=== PATIENT | male | born 1980 | race Caucasian/White ===

== ENCOUNTER → 2021-06-12 | Outpatient (CLI) | payer BC ==
[2021-06-12 11:03] LABS: ALBUMIN 4.2 GM/DL (3.2-5.2); ALT/SGPT 74 U/L (12-78); BILIRUBIN,TOTAL 0.6 MG/DL (0.2-1.0); BLOOD UREA NITROGEN 15 MG/DL (7-18); CALCIUM LEVEL 9.8 MG/DL (8.5-10.1); CARBON DIOXIDE LEVEL 32 MEQ/L (21-32); CHLORIDE LEVEL 108 MEQ/L (98-107); CHOLESTEROL LEVEL 266 MG/DL (<200); CHOLESTEROL RISK RATIO 4.925 (<5); CREATININE FOR GFR 1.07 MG/DL (0.70-1.30); GLOMERULAR FILTRATION RATE > 60.0 (>60); GLUCOSE, FASTING 99 MG/DL (70-100); HDL CHOLESTEROL 54 MG/DL (>40); LDL CHOLESTEROL 163 MG/DL (<100); NON-HDL-C 212 MG/DL; POTASSIUM SERUM 5.2 MEQ/L (3.5-5.1); SODIUM LEVEL 140 MEQ/L (136-145); TOTAL PROTEIN 7.5 GM/DL (6.4-8.2); TRIGLYCERIDES LEVEL 246 MG/DL (<150)
== END ==
LOC: M WUC 08:11
PROVIDERS: ATTEND Student in an Organized Health Care Education/Training Program
DX: I10 Essential (primary) hypertension (principal)

== ENCOUNTER → 2021-06-20 | Outpatient (CLI) | payer BC ==
--- NOTE | 2021-06-20 08:57 | REP ---
INDICATION: RADICULOPATHY COMPARISON: None. TECHNIQUE: Internal rotation, external rotation, axillary and Y view. FINDINGS: No acute fracture or dislocation. The acromioclavicular and glenohumeral joints are intact. No periarticular calcifications or degenerative changes are appreciated. Sub acromial space is normal. Surrounding soft tissues are unremarkable. IMPRESSION: Normal age-appropriate right shoulder radiographs. <Electronically signed by Geremias Johnston > 06/20/21 [id number]
--- NOTE | 2021-06-20 08:58 | REP ---
INDICATION: RADICULOPATHY COMPARISON: None. TECHNIQUE: AP, lateral, flexion/extension, bilateral oblique, and open-mouth views. FINDINGS: Alignment and lordosis is maintained. There is no evidence for acute fracture / compression injury or subluxation. No significant degenerative changes are appreciated. Oblique views demonstrate patent neural foramen. Open mouth view demonstrates normal C1-C2 articulation and odontoid process. IMPRESSION: Normal age-appropriate cervical spine series. <Electronically signed by Geremias Johnston > 06/20/21 [id number]
== END ==
LOC: M SOG 08:25
PROVIDERS: ATTEND Orthopaedic Surgery Sports Medicine
DX: M54.12 Radiculopathy, cervical region (principal)

== ENCOUNTER 2021-06-24 15:46 | Outpatient (RCR) | payer BC | END 2021-06-25 | LOC: M PT 15:46 | PROVIDERS: ATTEND Orthopaedic Surgery Sports Medicine | DX: M54.12 Radiculopathy, cervical region (principal) ==

== ENCOUNTER → 2021-06-29 | Outpatient (CLI) | payer BC ==
--- NOTE | 2021-06-30 10:07 | REPVR ---
PROCEDURE INFORMATION: Exam: MR Cervical Spine Without Contrast Exam date and time: 06/29/2021 2:17 PM Age: 40 years old Clinical indication: Radicular pain (radiculopathy); Location of radicular pain not specified; Additional info: Radiculopathy, impingement syndrome TECHNIQUE: Imaging protocol: Multiplanar magnetic resonance images of the cervical spine without contrast. COMPARISON: CR SPINE CERVICAL COMPLETE 06/20/2021 8:26 AM FINDINGS: Vertebrae: Straightening of lordosis may be positional or related to muscular spasm. Correlate clinically. Vertebral body heights are maintained. No acute fracture. No subluxation. Normal marrow signal. Disc heights are preserved. Craniocervical junction appears normal with normal position of cerebellar tonsils. Spinal cord: Normal signal. No intrinsic spinal cord lesion. Discs/Spinal canal/Neural foramina: There is minimal cervical disc bulging and marginal osteophyte formation. There is no spinal canal compromise or cord impingement. There is no significant neural foraminal narrowing. Vasculature: Expected flow voids in the vertebral arteries. Soft tissues: Unremarkable IMPRESSION: Minimal disc osteophyte complexes without significant foraminal compromise, spinal stenosis, or cord impingement. Electronically signed by: Elsie Adams On 06/30/2021 10:07:00 AM
--- NOTE | 2021-07-02 09:40 | REP ---
INDICATION: RADICULOPATHY, IMPINGEMENT SYNDROME. COMPARISON: Radiographs 06/20/2021. TECHNIQUE: Coronal oblique T1, T2 fat sat, sagittal oblique T2 fat sat, axial T2 fat sat, gradient echo. FINDINGS: Rotator cuff: There is mild supraspinatus tendinopathy/tendinitis with a partial bursal surface tear anteriorly. Acromioclavicular joint: There are mild hypertrophic degenerative changes of the acromioclavicular joint. Acromion: Type 2 Biceps Tendon: In bicipital groove, mild surrounding fluid may indicate mild tenosynovitis.. Hill Sach's deformity: None. Deltoid muscle: No abnormal signal. Biceps labral complex: I suspect a tear of the biceps labral complex. Labrum: There is a SLAP tear. This extends into the superior aspect of the posterior labrum. There is a small paralabral cyst at that location measuring 4 mm. Cartilage: There is mild chondromalacia at the glenohumeral joint. Bone marrow: No abnormal signal. Joint fluid: No effusion. IMPRESSION: Mild supraspinatus tendinopathy/tendinitis with a partial bursal surface tear anteriorly. Mild hypertrophic degenerative changes acromioclavicular joint, with a type 2 acromion. Mild fluid surrounding the biceps tendon in the bicipital groove may indicate mild tenosynovitis. There is a SLAP tear which appears to involve the biceps labral complex. There is also involvement of the superior aspect of the posterior labrum. There is a 4 mm paralabral cyst at that location. <Electronically signed by Drew Yeung > 07/02/21 0936
== END ==
LOC: M RAD 12:16
PROVIDERS: ATTEND Orthopaedic Surgery Sports Medicine
DX: M54.12 Radiculopathy, cervical region (principal); M75.41 Impingement syndrome of right shoulder; S43.431A Superior glenoid labrum lesion of right shoulder, initial encounter; X58.XXXA Exposure to other specified factors, initial encounter; Y92.9 Unspecified place or not applicable; Y99.9 Unspecified external cause status; Y93.9 Activity, unspecified

== ENCOUNTER 2021-07-10 16:45 | Outpatient (RCR) | payer BC | END 2021-07-25 | LOC: M PT 16:45 | PROVIDERS: ATTEND Orthopaedic Surgery Sports Medicine | DX: M54.12 Radiculopathy, cervical region (principal) ==

== ENCOUNTER 2021-09-29 11:44 | Emergency (ER) | payer BC ==
[~2021-09-29] VITALS: Ht 177.8 cm; Wt 115.8 kg
--- OUTSIDE RECORDS SUMMARY | 2021-09-29 11:52 | CCD | Continuity of Care Document ---
Author Author Fidencio GO MD Organization Unknown Address [address] [place] [address] , [facility] [address] [place] [address] Phone [phone] Care Team Providers Care Rn Research Name Role Phone Zee Gongora M.D. AUTM [phone] Problems Description No Information Available Social History Type Date Description Comments Sex Unknown ETOH Use Occasionally consumes alcohol Recreational Drug Use Denies Drug Use Tobacco Use Start: Unknown Denies Smoking Allergies, Adverse Reactions, Alerts Description No Known Drug Allergies Medications Description No Active Medications Immunizations Description No Information Available Vital Signs Date Vital Result Comment 06/20/2021 7:58am Body Temperature 96.8 F 06/04/2021 3:03pm Body Temperature 96.9 F Results Description No Information Available Procedures Date Code Description Status 07/09/2021 21978 Office/Outpatient Established Mo d MDM 30-39 Min Completed 06/20/2021 00319 Office/Outpatient Established Mo d MDM 30-39 Min Completed 06/20/2021 95729 Inject/Drain Arthrocentesis Ramila r Joint/Bursa/Ganglion Cyst Completed 06/04/2021 42470 Office/Outpatient New Low MDM 30 -44 Minutes Completed Medical Devices Description No Information Available Encounters Type Date Location Provider Dx Diagnosis Office Visit 07/09/2021 8:45a [facility] [place] Go MD S43.431D Superior glenoid labrum lesion of right shoulder, subs M65.811 Other synovitis and tenosyno vitis, right shoulder M19.011 Primary osteoarthritis, righ t shoulder M75.111 Incomplete rotatr-cuff tear/ ruptr of r shoulder, not trauma G56.21 Lesion of ulnar nerve, right upper limb Office Visit 06/20/2021 8:00a [facility] [place] Go MD G56.01 Carpal tunnel syndrome, right upper limb M25.511 Pain in right shoulder M79.601 Pain in right arm Office Visit 06/04/2021 3:00p [facility] Clayton Go MD G56.21 Lesion of ulnar nerve, right upper limb Assessments Date Code Description Provider 07/09/2021 S43.431D Superior glenoid lab rum lesion of right shoulder, subsequent encounter Clayton Go MD 07/09/2021 M65.811 Other synovitis and tenosynoviti s, right shoulder Clayton Go MD 07/09/2021 M19.011 Primary osteoarthritis, right sh oulder Clayton Go MD 07/09/2021 M75.111 Incomplete rotator c uff tear or rupture of right shoulder, not specified as traumatic Clayton Go MD 07/09/2021 G56.21 Lesion of ulnar nerve, right upp er limb Clayton Go MD 06/20/2021 G56.01 Carpal tunnel syndrome, right up per limb Clayton oG MD 06/20/2021 M25.511 Pain in right shoulder Clayton white MD 06/20/2021 M79.601 Pain in right arm Clayton Go MD 06/04/2021 G56.21 Lesion of ulnar nerve, right upp er limb Clayton Go MD Plan of Treatment No Information Available Functional Status Description No Information Available Mental Status Description No Information Available Referrals Refer to Dr Reason for Referral Status Appt Date Tima Blood M.D. NCS /EMG right upper extremi ty, POS findings for cubital tunnel, also right deltoid C5 numbness, assess for cervical radiculopathy [facility], [address] [place] [address] [phone]
--- OUTSIDE RECORDS SUMMARY | 2021-09-29 11:52 | CCD | Continuity of Care Document ---
Author Author Fidencio GO MD Organization Unknown Address [address] [place] [address] , [facility] [address] [place] [address] Phone [phone] Care Team Providers Care Residential Real Estate Assistant Name Role Phone Zee Gongora M.D. AUTM [phone] Problems Description No Information Available Social History [...] Available Procedures Date Code Description Status 07/09/2021 26840 Office/Outpatient Established Mo d MDM 30-39 Min Completed 06/20/2021 13237 Office/Outpatient Established Mo d MDM 30-39 Min Completed 06/20/2021 95642 Inject/Drain Arthrocentesis Ramila r Joint/Bursa/Ganglion Cyst Completed 06/04/2021 89748 Office/Outpatient New Low MDM 30 -44 Minutes Completed Medical Devices Description No Information Available Encounters Type Date Location Provider Dx Diagnosis Office Visit 07/09/2021 8:45a [facility] Go MD S43.431D Superior glenoid labrum lesion of right shoulder, subs Office Visit 06/20/2021 8:00a Al[facility] Go MD G56.01 Carpal tunnel syndrome, right upper limb M25.511 Pain in right shoulder M79.601 Pain in right arm Office Visit 06/04/2021 3:00p [facility] Go MD G56.21 Lesion of ulnar nerve, right upper limb Assessments Date Code Description Provider 07/09/2021 S43.431D Superior glenoid lab rum lesion of right shoulder, subsequent encounter Clayton Go MD 06/20/2021 G56.01 Carpal tunnel syndrome, right up per limb Clayton Go MD 06/20/2021 M25.511 Pain in right shoulder [...] C5 numbness, assess for cervical radiculopathy [facility], [address] [place] [address] [phone]
--- OUTSIDE RECORDS SUMMARY | 2021-09-29 11:52 | CCD ---
Author Author [facility] Organization [facility] Address Unknown Phone Unavailable Care Team Providers Care Shovel Operator Name Role Phone Dairnel Vargas MD Unavailable Unavailable Mollison, Darinel Arnold MD Unavailable Unavailable Mollison, Darinel Arnold MD Unavailable Unavailable Mollison, Darinel Arnold MD Unavailable Unavailable Mollison, Darinel Arnold MD Unavailable Unavailable Mollison, Darinel Arnold MD Unavailable Unavailable Mollison, Darinel Arnold MD Unavailable Unavailable Mollison, Darinel Arnold MD Unavailable Unavailable Mollison, Darinel Arnold MD Unavailable Unavailable Mollison, Darinel Arnold MD Unavailable Unavailable Mollison, Darinel Arnold MD Unavailable Unavailable Mollison, Darinel Arnold MD Unavailable Unavailable Mollison, Darinel Arnold MD Unavailable Unavailable Mollison, Darinel Arnold MD Unavailable Unavailable Mollison, Darinel Arnold MD Unavailable Unavailable Mollison, Darinel Arnold MD Unavailable Unavailable Mollison, Darinel Arnold MD Unavailable Unavailable Mollison, Darinel Arnold MD Unavailable Unavailable Mollison, Darinel Arnold MD Unavailable Unavailable Mollison, Darinel Arnold MD Unavailable Unavailable Mollison, Darinel Arnold MD Unavailable Unavailable Mollison, Darinel Arnold MD Unavailable Unavailable Mollison, Darinel Arnold MD Unavailable Unavailable Mollison, Darinel Arnold MD Unavailable Unavailable Mollison, Darinel Arnold MD Unavailable Unavailable Mollison, Darinel Arnold MD Unavailable Unavailable Mollison, Darinel Arnold MD Unavailable Unavailable Mollison, Darinel Arnold MD Unavailable Unavailable Mollison, Darinel Arnold MD Unavailable Unavailable Mollison, Darinel Arnold MD Unavailable Unavailable Mollison, Darinel Arnold MD Unavailable Unavailable Re-disclosure Warning The records that you are about to access may contain information from federally-assisted alcohol or drug abuse programs. If such information is present, then the following federally mandated warning applies: This information has been disclosed to you from records protected by federal confidentiality rules (42 CFR part 2). The federal rules prohibit you from making any further disclosure of this information unless further disclosure is expressly permitted by the written consent of the person to whom it pertains or as otherwise permitted by 42 CFR part 2. A general authorization for the release of medical or other information is NOT sufficient for this purpose. The Federal rules restrict any use of the information to criminally investigate or prosecute any alcohol or drug abuse patient.The records that you are about to access may contain highly sensitive health information, the redisclosure of which is protected by Article 27-F of the [facility] Public Health law. If you continue you may have access to information: Regarding HIV / AIDS; Provided by facilities licensed or operated by the [facility] Office of Mental Health; or Provided by the [facility] Office for People With Developmental Disabilities. If such information is present, then the following [facility] mandated warning applies: This information has been disclosed to you from confidential records which are protected by state law. State law prohibits you from making any further disclosure of this information without the specific written consent of the person to whom it pertains, or as otherwise permitted by law. Any unauthorized further disclosure in violation of state law may result in a fine or prison sentence or both. A general authorization for the release of medical or other information is NOT sufficient authorization for further disc losure. Family History Family Member Name Family Member Gender Family Member Status Date o f Status Description Data Source(s) Unknown Unknown Encounters Encounter Providers Location Date Indications Data Source(s ) Outpatient Attender: Clayton Ron/Darline/John/Re indl 07/09/2021 08:45:00 AM EDT [facility] ([facility] Outpatient Attender: Clayton Ron/Darline/John/Re indl 06/20/2021 08:00:00 AM EDT [facility] ([facility] Outpatient Attender: Clayton Ron/Francis/Re indl 06/04/2021 03:00:00 PM EDT [facility] ([facility] Outpatient [address] [facility] [address] 05/24/2021 12:00:00 AM EDT eCW1 ([facility]) Medications Medication Brand Name Start Date Product Form Dose Route Admi nistrative Instructions Pharmacy Instructions Status Indications Reaction Description Data Source(s) 8 HR Acetaminophen 650 MG Extended Release Oral Tablet [Tyle nol] Tylenol 8 Hour 06/07/2021 12:00:00 AM EDT active [facility] ([facility], ) Insurance Providers Payer name Policy type / Coverage type Policy ID Covered republican ID Covered republican's relationship to ritchie Policy Ritchie Plan Information [employer] [place] [id number] SPO [id number] [employer] [id number] SP [id number] ANSI-Commercial [id number] [employer] [place] [id number] SPO YND [id number] [employer] [place] BC [id number] SPO YND [id number] [place] WATN PPO [id number] BS [facility] Maintenance [facility] (HMO) [id number] S elf [place] BS [place] FEDERAL [id number] SP [id number] [place] [id number] SP [id number] [place] FED[place]AL P [id number] S [id number] [employer] [id number] SP [id number] Problems, Conditions, and Diagnoses Code Display Name Description Problem Type Effective Dates Data Source(s) 84361403 Paresthesia of upper limb Paresthesia of upper limb Pr oblem 06/07/2021 12:00:00 AM EDT [facility] ([facility], ) 81498161 Cervical radiculopathy Cervical radiculopathy Problem 06/07/2021 12:00:00 AM EDT [facility] ([facility], ) 39358027 Shoulder pain Shoulder pain Problem 06/07/2021 12:00:00 AM EDT [facility] ([facility], ) [id number] Chronic neck pain Chronic neck pain Problem 05/26 12:00:00 AM EDT [facility] ([facility], ) R20.2 11935053 Paresthesia of skin Problem 05/24/2021 12:00 :00 AM EDT eCW1 ([facility]) I10 [id number] Stage 1 hypertension Problem 05/24/2021 12:0 0:00 AM EDT eCW1 ([facility]) Z68.36 [id number] Body mass index [BMI] 36.0-36.9, adult Pr oblem 05/24/2021 12:00:00 AM EDT eCW1 ([facility]) F10.10 [id number] Mild alcohol abuse Problem 05/24/2021 12:00: 00 AM EDT eCW1 ([facility]) E66.9 [id number] Obesity, unspecified Problem 05/24/2021 12:0 0:00 AM EDT eCW1 ([facility]) G89.29 [id number] Other chronic pain Problem 05/24/2021 12:00: 00 AM EDT eCW1 ([facility]) Surgeries/Procedures Procedure Description Date Indications Data Source(s) OFFICE OUTPATIENT VISIT 25 MINUTES 07/09/2021 12:00:00 AM EDT [facility] ([facility], ) Inject/Drain Arthrocentesis Major Joint/Bursa/Ganglion Cyst 06/20/2021 12:00:00 AM EDT [facility] ([facility], ) OFFICE OUTPATIENT VISIT 25 MINUTES 06/20/2021 12:00:00 AM EDT [facility] ([facility], ) Needle electromyography, each extremity, with related paraspinal areas, when performed, done with nerve conduction, amplitude and latency/velocity study; complete, five or more muscles studied, innervated by three or more nerves or four or more spinal levels (list separately in addition to the code for primary procedure). 06/12/2021 12:00:00 AM EDT ALYSSA Rm ([facility], ) Needle Electromyography Non Extremity Done With Nerve Conduc tion 06/12/2021 12:00:00 AM EDT [facility] ([facility], ) Nerve Conduction 9-10 Studies 06/12/2021 12:00:00 AM E DT [facility] ([facility], ) OFFICE OUTPATIENT NEW 30 MINUTES 06/04/2021 12:00:00 A M EDT [facility] ([facility]) OFFICE OUTPATIENT NEW 45 MINUTES 06/04/2021 12:00:00 A M [facility] Results No Information Social History Code Duration Value Status Description Data Source(s ) Smoking 05/24/2021 12:00:00 AM EDT Never Smoker completed Never S moker eCW1 ([facility]) Vital Signs ID Date Data Source UNK Name Value Range Interpretation Code Description Data Source(s) Body temperature 96.8 [degF] 96.8 [degF] [facility] ([facility]) Systolic blood pressure 130 mm[Hg] 130 mm[Hg] M EDENT ([facility]) Diastolic blood pressure 80 mm[Hg] 80 mm[Hg] [facility] ([facility]) Heart rate 72 /min 72 /min [facility] ([facility]) Body height 70 [in_i] 70 [in_i] [facility] ([facility]) 5'10" Body weight 260.00 [lb_av] 260.00 [lb_av] MEDEN T ([facility]) Body mass index (BMI) [Ratio] 37.3 kg/m2 37.3 k g/m2 MED[facility] ([facility]) [place] body weight 166 [lb_av] 166 [lb_av] MEDEN T ([facility]) Body temperature 96.9 [degF] 96.9 [degF] [facility] ([facility]) Body weight 260.4 [lb_av] 260.4 [lb_av] eCW1 ([facility]) Systolic blood pressure 139 mm[Hg] 139 mm[Hg] e CW1 ([facility]) Body height 70.5 [in_i] 70.5 [in_i] eCW1 ([facility]) Diastolic blood pressure 83 mm[Hg] 83 mm[Hg] eCW1 ([facility]) Body mass index (BMI) [Ratio] 36.83 kg/m2 36.83 kg/m2 eCW1 ([facility]) Heart rate 70 /min 70 /min eCW1 ([facility]) Respiratory rate 17 /min 17 /min eCW1 ([facility]) Body temperature 98.4 [degF] 98.4 [degF] eCW1 ( [facility])
--- OUTSIDE RECORDS SUMMARY | 2021-09-29 12:41 | CCD ---
Author Author [facility] Organization [facility] Address Unknown Phone Unavailable Care Team Providers Care Director Of Enterprise Applications Name Role Phone Darinel Vargas MD Unavailable Unavailable Mollison, Darinel Arnold [...] is protected by Article 27-F of the [facility] Public Health law. If you continue you may have access to information: Regarding HIV / AIDS; Provided by facilities licensed or operated by the [facility] Office of Mental Health; or Provided by the [facility] Office for People With Developmental Disabilities. If such information is present, then the following [facility] mandated warning applies: This information [...] law may result in a fine or chcf sentence or both. A general authorization for the release of medical or other information is NOT sufficient authorization for further disc losure. Family History Family Member Name Family Member Gender Family Member Status Date o f Status Description Data Source(s) Unknown Unknown Encounters Encounter Providers Location Date Indications Data Source(s ) Outpatient Attender: Clayton Ron/Darline/John/Re indl 07/09/2021 08:45:00 AM EDT [facility] ([facility] Outpatient Attender: Clayton Ron/Darline/John/Re indl 06/20/2021 08:00:00 AM EDT [facility] ([facility] Outpatient Attender: Clayton Ron/Francis/Re indl 06/04/2021 03:00:00 PM EDT [facility] ([facility] Outpatient [address] [facility] [address] 05/24/2021 12:00:00 AM EDT eCW1 ([facility]) Medications Medication Brand Name Start Date Product Form Dose Route Admi nistrative Instructions Pharmacy Instructions Status Indications Reaction Description Data Source(s) 8 HR Acetaminophen 650 MG Extended Release Oral Tablet [Tyle nol] Tylenol 8 Hour 06/07/2021 12:00:00 AM EDT active [facility] ([facility] ) Insurance Providers Payer name Policy type / Coverage type Policy ID Covered green party ID Covered green party's relationship to ritchie Policy Ritchie Plan Information [employer] [place] [id number] SPO [id number] [employer] [id number] SP [id number] ANSI-Commercial [id number] [employer] [place] [id number] SPO [id number] [id number] [employer] [place] BC [id number] SPO [id number] [id number] [place] WATN PPO [id number] BS [employer] Maintenance Organization (HMO) [id number] S elf [place] BS [place] FEDERAL [id number] SP [id number] [place] [id number] SP [id number] [place] P [id number] S [id number] [employer] [id number] SP [id number] Problems, Conditions, and Diagnoses Code Display Name Description Problem Type Effective Dates Data Source(s) 26745239 Paresthesia of upper limb Paresthesia of upper limb Pr oblem 06/07/2021 12:00:00 AM EDT [facility] ([facility], ) [id number] Cervical radiculopathy Cervical radiculopathy Problem 06/07/2021 12:00:00 AM EDT [facility] ([facility], ) 13946261 Shoulder pain Shoulder pain Problem 06/07/2021 12:00:00 AM EDT [facility] ([facility] ) [id number] Chronic neck pain Chronic neck pain Problem 05/26 12:00:00 AM EDT [facility] ([facility] ) R20.2 [id number] Paresthesia of skin Problem 05/24/2021 12:00 :00 AM EDT eCW1 ([facility]) I10 [id number] Stage 1 hypertension Problem 05/24/2021 12:0 0:00 AM EDT eCW1 ([facility]) Z68.36 [id number] Body mass index [BMI] 36.0-36.9, adult Pr oblem 05/24/2021 12:00:00 AM EDT eCW1 ([facility]) F10.10 70923890 Mild alcohol abuse Problem 05/24/2021 12:00: 00 AM EDT eCW1 ([facility]) E66.9 [id number] Obesity, unspecified Problem 05/24/2021 12:0 0:00 AM EDT eCW1 ([facility]) G89.29 68072994 Other chronic pain Problem 05/24/2021 12:00: 00 AM EDT eCW1 ([facility]) Surgeries/Procedures Procedure Description Date Indications Data Source(s) OFFICE OUTPATIENT VISIT 25 MINUTES 07/09/2021 12:00:00 AM EDT [facility] ([facility], ) Inject/Drain Arthrocentesis Major Joint/Bursa/Ganglion Cyst 06/20/2021 12:00:00 AM EDT [facility] ([facility], ) OFFICE OUTPATIENT VISIT 25 MINUTES 06/20/2021 12:00:00 AM EDT [facility] ([facility], ) Needle electromyography, each extremity, with related paraspinal areas, when performed, done with nerve conduction, amplitude and latency/velocity study; complete, five or more muscles studied, innervated by three or more nerves or four or more spinal levels (list separately in addition to the code for primary procedure). 06/12/2021 12:00:00 AM EDT ALYSSA T ([facility], ) Needle Electromyography Non Extremity Done With Nerve Conduc tion 06/12/2021 12:00:00 AM EDT [facility] ([facility] ) Nerve Conduction 9-10 Studies 06/12/2021 12:00:00 AM E DT MEDKIKE ([facility], ) OFFICE OUTPATIENT NEW 30 MINUTES 06/04/2021 12:00:00 A M EDT [facility] ([facility]) OFFICE OUTPATIENT NEW 45 MINUTES 06/04/2021 12:00:00 A M [facility] Results No Information Social History Code Duration Value Status Description Data Source(s ) Smoking 05/24/2021 12:00:00 AM EDT Never Smoker completed Never S moker eCW1 ([facility]) Vital Signs ID Date Data Source UNK Name Value Range Interpretation Code Description Data Source(s) Body temperature 96.8 [degF] 96.8 [degF] [facility] ([facility]) Systolic blood pressure 130 mm[Hg] 130 mm[Hg] M EDENT ([facility]) Diastolic blood pressure 80 mm[Hg] 80 mm[Hg] [facility] ([facility]) Heart rate 72 /min 72 /min [facility] ([facility]) Body height 70 [in_i] 70 [in_i] [facility] ([facility]) 5'10" Body weight 260.00 [lb_av] 260.00 [lb_av] MEDEN T ([facility]) Body mass index (BMI) [Ratio] 37.3 kg/m2 37.3 k g/m2 MED[facility] ([facility]) [place] body weight 166 [lb_av] 166 [lb_av] MEDEN T ([facility]) Body temperature 96.9 [degF] 96.9 [degF] [facility] ([facility]) Body weight 260.4 [lb_av] 260.4 [lb_av] eCW1 ([facility]) Systolic blood pressure 139 mm[Hg] 139 mm[Hg] e CW1 ([facility]) Body height 70.5 [in_i] 70.5 [in_i] eCW1 ([facility]) Diastolic blood pressure 83 mm[Hg] 83 mm[Hg] eCW1 ([facility]) Body mass index (BMI) [Ratio] 36.83 kg/m2 36.83 kg/m2 eCW1 ([facility]) Heart rate 70 /min 70 /min eCW1 ([facility]) Respiratory rate 17 /min 17 /min eCW1 ([facility]) Body temperature 98.4 [degF] 98.4 [degF] eCW1 ( [facility])
[2021-09-29] MEDS ORDERED: LIDOCAINE 2% MDV 20ML VIAL SC ONE (13:05)
--- NOTE | 2021-09-29 13:38 | REP ---
INDICATION: fall ladder, pain, tenderness. COMPARISON: None. TECHNIQUE: Four views of the right femur were obtained. FINDINGS: No evidence of fracture. The hip and knee joints appear unremarkable. There are no soft tissue abnormalities. IMPRESSION: Normal right femur. <Electronically signed by David Sykes > 09/29/21 [id number]
--- NOTE | 2021-09-29 13:43 | REP ---
INDICATION: fall ladder, pain, tenderness, open laceration. COMPARISON: None. TECHNIQUE: Four views of the right tibia and fibula were obtained. FINDINGS: No evidence of fracture. The knee and ankle joints appear unremarkable. There are no soft tissue abnormalities. IMPRESSION: Normal right tibia and fibula. <Electronically signed by David Sykes > 09/29/21 [id number]
[2021-09-29] MEDS ORDERED: DERMABOND TOPICAL SKIN ADHESIVE TOP ONE (14:05)
[2021-09-29] MEDS ORDERED: NEOSPORIN OINT 0.9 GM PKT TOP ONE (14:05)
[2021-09-29 14:12] VITALS: BP 122/70
[2021-09-29] MEDS ORDERED: IBUP80TA PO (15:02)
== END 2021-09-29 14:45 | disposition home or self-care (01) ==
LOC: M ED 11:44
DX: S81.832A Puncture wound without foreign body, left lower leg, initial encounter (principal); S81.811A Laceration without foreign body, right lower leg, initial encounter; W23.1XXA Caught, crushed, jammed, or pinched between stationary objects, initial encounter; W11.XXXA Fall on and from ladder, initial encounter; Y92.9 Unspecified place or not applicable; Y93.9 Activity, unspecified; Y99.9 Unspecified external cause status

== ENCOUNTER → 2022-01-14 | Outpatient (CLI) | payer BC ==
[~2022-01-14] MED LIST: IBUP80TA PO
== END ==
LOC: M WUC 15:13
PROVIDERS: ATTEND Student in an Organized Health Care Education/Training Program
DX: M25.562 Pain in left knee (principal); M17.12 Unilateral primary osteoarthritis, left knee

== ENCOUNTER → 2022-10-29 | Outpatient (CLI) | payer BC | LOC: M OUTALCOH 07:25 | PROVIDERS: ATTEND Psychiatry & Neurology Psychiatry | DX: Z13.39 Encounter for screening examination for other mental health and behavioral disorders (principal) ==

== ENCOUNTER 2022-11-18 16:00 | Outpatient (RCR) | payer BC | END 2022-11-25 | LOC: M OUTALCOH 16:00 | PROVIDERS: ATTEND Psychiatry & Neurology Psychiatry | DX: F10.20 Alcohol dependence, uncomplicated (principal) ==

== ENCOUNTER → 2022-12-23 | Outpatient (RCR) | payer BC | LOC: M OUTALCOH 12-02 16:00 | PROVIDERS: ATTEND Psychiatry & Neurology Psychiatry | DX: F10.20 Alcohol dependence, uncomplicated (principal) ==

== ENCOUNTER 2023-01-13 15:51 | Outpatient (RCR) | payer BC | END 2023-01-23 | LOC: M OUTALCOH 15:51 | PROVIDERS: ATTEND Psychiatry & Neurology Psychiatry | DX: F10.20 Alcohol dependence, uncomplicated (principal) ==

== ENCOUNTER 2023-02-17 16:00 | Outpatient (RCR) | payer BC | END 2023-02-22 | LOC: M OUTALCOH 16:00 | PROVIDERS: ATTEND Psychiatry & Neurology Psychiatry | DX: F10.20 Alcohol dependence, uncomplicated (principal) ==

== ENCOUNTER → 2023-10-14 | Outpatient (REF) | payer BC ==
[2023-10-14 12:47] LABS: BASO # 0.1 10^3/uL (0.0-0.2); BASO % 0.5 % (0.0-1.0); EOS # 0.2 10^3/uL (0.0-0.5); HEMATOCRIT 48.7 % (42.0-52.0); HEMOGLOBIN 16.4 g/dl (13.5-17.5); LYMPH # 4.1 10^3/uL (1.5-5.0); LYMPH % 44.1 % (24.0-44.0); MEAN CORPUSCULAR HEMOGLOBIN 30.2 pg (27.0-33.0); MEAN CORPUSCULAR HGB CONC 33.7 g/dl (32.0-36.5); MEAN CORPUSCULAR VOLUME 89.7 fl (80.0-96.0); MONO # 0.8 10^3/uL (0.0-0.8); MONO % 8.9 % (2.0-8.0); NEUTROPHILS # 4.1 10^3/uL (1.5-8.5); NEUTROPHILS % 43.9 % (36.0-66.0); PLATELET COUNT, AUTOMATED 279 10^3/uL (150-450); RED BLOOD COUNT 5.43 10^6/uL (4.30-6.10); WHITE BLOOD COUNT 9.3 10^3/uL (4.0-10.0)
[2023-10-14 13:16] LABS: ALBUMIN 4.3 G/DL (3.2-5.2); ALKALINE PHOSPHATASE 64 U/L (46-116); ALT/SGPT 37 U/L (7.0-40); AST/SGOT 20 U/L (<34); BILIRUBIN,TOTAL 0.7 MG/DL (0.3-1.2); BLOOD UREA NITROGEN 20 MG/DL (9-23); CALCIUM LEVEL 10.3 MG/DL (8.5-10.1); CARBON DIOXIDE LEVEL 29 MMOL/L (20-31); CHLORIDE LEVEL 109 MMOL/L (98-107); CHOLESTEROL LEVEL 262 MG/DL (<200); CHOLESTEROL RISK RATIO 5.69 (<5); CREATININE FOR GFR 1.13 MG/DL (0.70-1.30); GLOMERULAR FILTRATION RATE > 60.0 (>60); GLUCOSE, FASTING 78 MG/DL (60-100); LDL CHOLESTEROL 185.8 MG/DL (<100); POTASSIUM SERUM 4.8 MMOL/L (3.5-5.1); SODIUM LEVEL 142 MMOL/L (136-145); TOTAL PROTEIN 7.3 G/DL (5.7-8.2); TRIGLYCERIDES LEVEL 151 MG/DL (<150)
[2023-10-14 13:18] LABS: FREE T4 1.19 NG/DL (0.89-1.76); THYROID STIMULATING HORMONE 2.103 uIU/ML (0.55-4.78)
[2023-10-14 13:24] LABS: HEMOGLOBIN A1c 5.1 % (4.0-6.0)
== END ==
LOC: M LABWUC 12:13
PROVIDERS: ATTEND Family Medicine
DX: E78.5 Hyperlipidemia, unspecified (principal); E66.9 Obesity, unspecified; E87.5 Hyperkalemia

== ENCOUNTER → 2023-10-22 | Outpatient (CLI) | payer BC | LOC: M SLEEP HO 10:55 | PROVIDERS: ATTEND Family Medicine | DX: G47.33 Obstructive sleep apnea (adult) (pediatric) (principal); R06.83 Snoring ==

== ENCOUNTER → 2024-04-13 | Outpatient (CLI) | payer BC | LOC: M SLEEP 20:00 | PROVIDERS: ATTEND Nurse Practitioner Family | DX: G47.33 Obstructive sleep apnea (adult) (pediatric) (principal) ==

== ENCOUNTER → 2025-02-24 | Outpatient (CLI) | payer BC ==
[2025-02-24 14:28] LABS: HEMATOCRIT 45.9 % (42.0-52.0); HEMOGLOBIN 15.6 g/dl (13.5-17.5); MEAN CORPUSCULAR HEMOGLOBIN 30.8 pg (27.0-33.0); MEAN CORPUSCULAR VOLUME 90.5 fl (80.0-96.0); PLATELET COUNT, AUTOMATED 254 10^3/uL (150-450); RED BLOOD COUNT 5.07 10^6/uL (4.30-6.10); WHITE BLOOD COUNT 8.5 10^3/uL (4.0-10.0)
[2025-02-24 14:38] LABS: HEMOGLOBIN A1c 5.2 % (4.0-6.0)
[2025-02-24 15:00] LABS: ALBUMIN 4.1 G/DL (3.2-5.2); BILIRUBIN,TOTAL 0.7 MG/DL (0.3-1.2); CALCIUM LEVEL 9.8 MG/DL (8.5-10.1); CHOLESTEROL RISK RATIO 5.64 (<5); CREATININE FOR GFR 1.11 MG/DL (0.70-1.30); HDL CHOLESTEROL 43.4 MG/DL (>40); LDL CHOLESTEROL 155.6 MG/DL (<100); NON-HDL-C 201.6 MG/DL; POTASSIUM SERUM 5.2 MMOL/L (3.5-5.1); TOTAL PROTEIN 7.3 G/DL (5.7-8.2)
[2025-02-24 15:01] LABS: THYROID STIMULATING HORMONE 1.369 uIU/ML (0.55-4.78); TOTAL 25(OH) VITAMIN D 25.4 NG/ML (20.0-100.0)
== END ==
LOC: M WUC 12:28
DX: Z00.00 Encounter for general adult medical examination without abnormal findings (principal)

== ENCOUNTER → 2025-05-17 | Outpatient (CLI) | payer BC | LOC: M PLAIMG 06:32 | PROVIDERS: ATTEND Internal Medicine | DX: M25.561 Pain in right knee (principal); S83.241A Other tear of medial meniscus, current injury, right knee, initial encounter; X58.XXXA Exposure to other specified factors, initial encounter; Y92.9 Unspecified place or not applicable; Y93.9 Activity, unspecified; Y99.9 Unspecified external cause status ==

== ENCOUNTER 2025-06-16 10:51 | Day surgery (SDC) | payer BC ==
[~2025-06-16] VITALS: Ht 177.8 cm; Wt 119.0 kg
[~2025-06-16 10:51] MED LIST changes: +LIDOCAINE 2% 100 MG/5 ML SDV (FOR ANES.) As Ordered ONE
[2025-06-16 12:47] VITALS: TEMP 97.7
[2025-06-16 13:06] VITALS: BP 128/69; O2SAT 98
== END 2025-06-16 13:14 | disposition home or self-care (01) ==
LOC: M OPP 10:51
PROVIDERS: ATTEND Surgery
DX: Z12.11 Encounter for screening for malignant neoplasm of colon (principal); K63.5 Polyp of colon; K57.30 Diverticulosis of large intestine without perforation or abscess without bleeding; G47.30 Sleep apnea, unspecified; Z79.899 Other long term (current) drug therapy

== ENCOUNTER → 2025-08-28 | Outpatient (CLI) | payer BC ==
[~2025-08-28] MED LIST changes: -LIDOCAINE 2% 100 MG/5 ML SDV (FOR ANES.) As Ordered ONE
== END ==
LOC: M WUC 08:21
PROVIDERS: ATTEND Student in an Organized Health Care Education/Training Program
DX: J06.9 Acute upper respiratory infection, unspecified (principal); R05.9 Cough, unspecified